=== PATIENT | female | born 1955 | race Caucasian/White ===

== ENCOUNTER 2016-05-29 09:24 | Day surgery (SDC) | payer OTHER ==
[2016-05-24 10:58] VITALS: BMI 19.7
[2016-05-29] MEDS ORDERED: BUPIVACAINE HCL 0.25% 125 MG/50 ML VIAL ONE (10:47)
[2016-05-29] MEDS ORDERED: MIDAZOLAM HCL 2 MG/2 ML SINGLE DOSE VIAL ONE (11:28)
[2016-05-29] MEDS ORDERED: PROPOFOL 20 ML ONE (11:28)
[2016-05-29] MEDS ORDERED: ONDANSETRON 4 MG/2 ML VIAL IVPUSH PRN ×2 (11:57→12:26)
[2016-05-29] MEDS ORDERED: oxyCODONE HCL 5 MG TABLET PO PRN ×3 (11:57→12:26)
[2016-05-29] MEDS ORDERED: LACTATED RINGERS SOLUTION 1,000 ML IV SCH ×2 (12:00→12:30)
[2016-05-29 13:53] VITALS: TEMP 97.9
[2016-05-29 14:02] VITALS: BP 98/58; PULSE 56
--- NOTE | 2016-05-30 18:34 | OP ---
DATE OF OPERATION: 05/29/2016 PREOPERATIVE DIAGNOSIS: Right carpal tunnel syndrome. POSTOPERATIVE DIAGNOSIS: Right carpal tunnel syndrome. OPERATIVE PROCEDURE: Right endoscopic carpal tunnel release. ANESTHESIA: General. COMPLICATIONS: None. ESTIMATED BLOOD LOSS: Minimal. INDICATIONS FOR PROCEDURE: The patient is a 60-year-old female with the above findings, indicated for operative treatment. Risks, benefits, and alternatives were discussed with the patient at length. Proper informed consent was obtained. PROCEDURE: After proper identification of the patient and correct operative site, the patient was brought to the operating room and placed supine on the operating room table. All bony prominences were well padded. General anesthesia was provided by the anesthesiologist. The right upper extremity was prepped and draped in the usual sterile fashion. A well-padded tourniquet was placed over a sterile prep. An Esmarch bandage was used to exsanguinate the right upper extremity. A tourniquet was inflated to 250 mmHg. A transverse incision was made over the proximal wrist crease. Incision was taken sharply through skin with blunt and sharp dissection through subcutaneous tissues. Care was taken to protect the palmar cutaneous branch of the median nerve. Antebrachial fascia was divided and a full-thickness flap was developed distally. The carpal canal was prepared with an elevator to detach any soft tissue from the undersurface of the transcarpal ligament. dilators were then used to prepare the canal further. The MicroSatoris endoscopic carpal tunnel release system was then used. At all times throughout the procedure, excellent visualization was achieved and at no time was any soft tissue allowed to interpose between the undersurface of the transverse carpal ligament and the blade. The device was inserted through the distal end of the transcarpal ligament. The blade was deployed and the transcarpal ligament was divided. Under direct visualization, the distal antebrachial fascia were also divided. This provided complete release of the median nerve of the wrist. The wound was irrigated with copious amounts of normal saline and repaired with a 5-0 nylon suture. Sterile dressings were applied. The patient was reversed from anesthesia and brought to the recovery room in stable condition. She tolerated the procedure well. Missy [id number]
== END 2016-05-29 14:00 | disposition home or self-care (01) ==
LOC: FASU 09:24
PROVIDERS: ATTEND Orthopaedic Surgery Hand Surgery
PROC: 01N54ZZ Release Median Nerve, Percutaneous Endoscopic Approach (ICD-10-PCS; principal; 2016-05-29 11:00)
DX: G56.01 Carpal tunnel syndrome, right upper limb (principal)
CPT/HCPCS: 94760

== ENCOUNTER 2017-05-13 09:23 | Emergency (ER) | payer OTHER ==
[2017-05-13 09:43] VITALS: BP 102/58; PULSE 69; TEMP 98; BMI 20.2
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
[2017-05-13] MEDS ORDERED: IBUPROFEN 400 MG TABLET (FP) PO ONE ×2 (12:55→13:00)
== END 2017-05-13 13:02 | disposition home or self-care (01) ==
LOC: JERFT 09:23
DX: S29.8XXA Other specified injuries of thorax, initial encounter (principal); V78.6XXA Passenger on bus injured in noncollision transport accident in traffic accident, initial encounter; Y93.89 Activity, other specified; Y92.414 Local residential or business street as the place of occurrence of the external cause; Y99.0 Civilian activity done for income or pay
CPT/HCPCS: 71101-TC-FY; 99281-25